=== PATIENT | male | born 1990 | race American Indian/Alaskan Native ===

== ENCOUNTER 2017-03-29 22:01 | Emergency (ER) | payer SELFPAY ==
[2017-03-29 22:53] VITALS: BP 126/74
== END 2017-03-30 04:11 | disposition left against medical advice (07) ==
LOC: ED 22:01
DX: Z53.21 Procedure and treatment not carried out due to patient leaving prior to being seen by health care provider (principal)

== ENCOUNTER 2018-03-22 15:24 | Emergency (ER) | payer SELFPAY ==
--- NOTE | 2018-03-22 20:16 | Emergency Department Report ---
- General Chief Complaint: Upper Respiratory Infection Stated Complaint: CHEST PAIN Time Seen by Provider: 03/22/18 18:50 Source: patient Mode of arrival: Ambulatory Limitations: No Limitations - History of Present Illness Initial Comments: 27-year-old male Mr. Guerra is much department for a few reasons. Reasonable 1. States he was eating some of his girlfriend's cooking states that she is a terrible Cook for this reason cause him to have some nausea and vomiting. Reports having a few episodes of vomiting in the bathroom a lot of retching the rectum. The retching lead to a popping sensation to his right rib, which is followed by pain to the anterior lower rib region. No shortness of breath, no hemoptysis, no hematemesis. There is is somewhat tender to the touch and with deep breathing. The vomiting has resolved. He is is able to tolerate oral at this present time Also reports having some visual cough and congestion for a couple days but no fever, no malaise. No myalgias. No headache. No sore throat. Reports no diarrhea, no dysuria. No known sick contacts to his knowledge. 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 Reports no trauma or pain to his lower back. No saddle paresthesia. No loss of bowel or bladder bladder. No urinary retention.. He reports no trauma to his knowledge. Consistency: intermittent Improves With: nothing Worsens With: nothing Context: sick contacts Associated Symptoms: denies other symptoms Treatments Prior to Arrival: none - Related Data Previous Rx's Medication Instructions Recorded Last Taken Type Ketorolac [Toradol] 10 mg PO Q6H PRN #15 tablet 03/22/18 Unknown Rx Ondansetron [Zofran ODT TAB] 8 mg PO Q12HR #14 tab.rapdis 03/22/18 Unknown Rx Allergies Allergy/AdvReac Type Severity Reaction Status Date / Time Penicillins Allergy Unknown Verified 03/29/17 22:53 ED Review of Systems ROS: Stated complaint: CHEST PAIN Other details as noted in HPI Constitutional: denies: chills, fever Eyes: denies: eye pain, eye discharge, vision change ENT: denies: ear pain, throat pain Respiratory: cough. denies: shortness of breath, wheezing Cardiovascular: denies: chest pain, palpitations Endocrine: no symptoms reported Gastrointestinal: vomiting. denies: abdominal pain, nausea, diarrhea Genitourinary: denies: urgency, dysuria Musculoskeletal: denies: back pain, joint swelling, arthralgia Skin: denies: rash, lesions Neurological: denies: headache, weakness, paresthesias Psychiatric: denies: anxiety, depression Hematological/Lymphatic: denies: easy bleeding, easy bruising ED Past Medical Hx - Past Medical History Previous Medical History?: No - Surgical History Past Surgical History?: No - Social History Smoking Status: Current Every Day Smoker Substance Use Type: None - Medications Home Medications: Home Medications Medication Instructions Recorded Confirmed Last Taken Type Ketorolac [Toradol] 10 mg PO Q6H PRN #15 tablet 03/22/18 Unknown Rx Ondansetron [Zofran ODT TAB] 8 mg PO Q12HR #14 tab.rapdis 03/22/18 Unknown Rx ED Physical Exam - General Limitations: No Limitations General appearance: alert, in no apparent distress - Head Head exam: Present: atraumatic, normocephalic - Eye Eye exam: Present: normal appearance - ENT ENT exam: Present: mucous membranes moist - Neck Neck exam: Present: normal inspection - Respiratory Respiratory exam: Present: normal lung sounds bilaterally, chest wall tenderness (is tenderness to his right anterior rib border and area of the cartilage, just proximal to his liver. No crepitus is appreciated.). Absent: respiratory distress, wheezes, rales, rhonchi, decreased breath sounds, prolonged expiratory - Cardiovascular Cardiovascular Exam: Present: regular rate, normal rhythm. Absent: systolic murmur, diastolic murmur, rubs, gallop - GI/Abdominal GI/Abdominal exam: Present: soft, normal bowel sounds. Absent: tenderness, guarding, rebound - Rectal Rectal exam: Present: deferred - Extremities Exam Extremities exam: Present: normal inspection, full ROM, normal capillary refill - Back Exam Back exam: Present: normal inspection, full ROM. Absent: tenderness, CVA tenderness (R), CVA tenderness (L), muscle spasm, paraspinal tenderness, vertebral tenderness, rash noted - Neurological Exam Neurological exam: Present: alert, oriented X3, CN II-XII intact, normal gait - Psychiatric Psychiatric exam: Present: normal affect, normal mood - Skin Skin exam: Present: warm, dry, intact, normal color. Absent: rash ED Course Vital Signs 03/22/18 15:31 Temperature 98.7 F Pulse Rate 80 Respiratory 16 Rate Blood Pressure 142/81 O2 Sat by Pulse 99 Oximetry ED Medical Decision Making - Medical Decision Making I discussed Mr. Collazo from the follow with neurologist and primary care provider for further evaluation fourth no lower extremity neuropathy. Has not had that appear to have any symptoms of any thyroid or any diabetic pathway. Nose. He having traumatic pathway. Does not appear to have any issues with his lower lumbar region. Pain appears to be rather sporadic. Not affecting his work strength or his walking. Critical care attestation.: If time is entered above; I have spent that time in minutes in the direct care of this critically ill patient, excluding procedure time. ED Disposition Clinical Impression: Vomiting, Lower extremity neuropathy, URI (upper respiratory infection) Disposition: DC-01 TO HOME OR SELFCARE Is pt being admited?: No Does the pt Need Aspirin: No Condition: Stable Instructions: Upper Respiratory Infection (ED), Acute Nausea and Vomiting (ED) Referrals: [facility]IMARY [facility] [Primary Care Provider] - 3-5 Days [facility] [Provider Group] - 3-5 Days
== END 2018-03-22 20:22 | disposition home or self-care (01) ==
LOC: ED 15:24
CPT/HCPCS: 99282